=== PATIENT | male | born 1980 | race Caucasian/White ===

== ENCOUNTER 2018-08-18 08:41 | Emergency (ER) | payer SELFPAY ==
[~2018-08-18] VITALS: Ht 188 cm; Wt 84.0 kg
[2018-08-18 10:04] LABS: URINE BILIRUBIN - DIPSTICK NEGATIVE (NEGATIVE); URINE BLOOD DIPSTICK LARGE (NEGATIVE); URINE COLOR YELLOW; URINE GLUCOSE - DIPSTICK NEGATIVE (NEGATIVE); URINE KETONE NEGATIVE (NEGATIVE); URINE LEUK ESTERASE NEGATIVE (NEGATIVE); URINE NITRITE - DIPSTICK NEGATIVE (Negative); URINE PH 5.5 (4.5-8.0); URINE PROTEIN - DIPSTICK TRACE mg/dL (NEG-TRACE); URINE SPECIFIC GRAVITY >=1.030; URINE UROBILINOGEN - DIPSTICK 0.2 E.U./dL (0.2)
[2018-08-18 10:07] LABS: URINE CLARITY SL CLOUDY
[2018-08-18 10:11] LABS: URINE EPITHELIAL CELLS FEW EPI/hpf (0-FEW)
[2018-08-18 10:18] LABS: HEMATOCRIT 41.4 % (39.0-50.0); HEMOGLOBIN 14.6 g/dl (14.0-18.0); IMMATURE GRANULOCYTES 0.3 % (0.0-5.0); MEAN CELL VOLUME 91.2 fL CALC (80.0-100.0); MEAN CORPUSCULAR HGB 32.2 pG CALC (26.0-32.0); MEAN CORPUSCULAR HGB CONC 35.3 g/L CALC (32.0-36.0); NEUT# 3.93 thou/uL (1.82-7.42); RED BLOOD COUNT 4.54 mill/uL (4.70-6.10); RED CELL DISTRI WIDTH 11.7 % (11.5-15.5)
[2018-08-18 10:24] LABS: ALBUMIN 4.2 g/dL (3.2-5.0); ALKALINE PHOSPHATASE 59 u/l (38-126); ANION GAP 12 (6-22 (CALC)); BILIRUBIN, TOTAL 0.5 mg/dL (0.0-1.4); BUN 16 mg/dL (9-20); BUN/CREATININE RATIO 19 (12-20 (CALC)); CARBON DIOXIDE 27 mmol/l (22-30); CHLORIDE 108 mmol/l (95-108); CREATININE 0.9 mg/dL (0.7-1.3); GFR > 60 ML/MIN (>=60 (CALC)); GFR FOR AFR.AMER. > 60 ML/MIN (>=60 (CALC)); LIPASE 47 u/l (23-300); POTASSIUM 4.7 mmol/l (3.5-5.1); SGOT/AST 20 u/l (17-59); SODIUM 142 mmol/l (137-146)
[2018-08-18] MEDS ORDERED: CEPHALEXIN500 M1 PO (11:10)
[2018-08-18] MEDS ORDERED: TAMSULOSIN0.4 MG PO (11:10)
[2018-08-18] MEDS ORDERED: HYDROCO/APAP1 TA9 PO (11:10)
[2018-08-18] MEDS ORDERED: MOTRIN400 MG PO (11:10)
[2018-08-18 11:22] VITALS: BP 141/86
== END 2018-08-18 11:36 | disposition home or self-care (01) | DRG 694 ==
LOC: ED 08:41
PROVIDERS: Family Medicine
DX: N20.0 Calculus of kidney (principal); R10.32 Left lower quadrant pain; R11.0 Nausea; F17.210 Nicotine dependence, cigarettes, uncomplicated